=== PATIENT | male | born 1985 | race Caucasian/White ===

== ENCOUNTER 2020-07-16 11:36 | Emergency (ER) | payer BC ==
[~2020-07-16] VITALS: Ht 175.3 cm; Wt 80.4 kg
[2020-07-16] MEDS ORDERED: TETANUS/DIPHTHERIA TOX ADULT 0.5 ML SYR IM ONE (13:45)
[2020-07-16] MEDS ORDERED: HYDROCODONE/APAP 5MG-325MG TAB PO ONE (13:45)
[2020-07-16] MEDS ORDERED: TETANUS/DIPHTHERIA TOX ADULT 0.5 ML SYR ONE (14:46)
[2020-07-16] MEDS ORDERED: HYDROCODONE/APAP 5MG-325MG TAB ONE (14:46)
[2020-07-16] MEDS ORDERED: BACITRACIN ZINC 15 GM OINT TOP STA (16:38)
[2020-07-16] MEDS ORDERED: KETOROLAC TROMETHAMINE 60 MG/2 ML VIAL IM ONE (16:45)
[2020-07-16] MEDS ORDERED: LEVOFLOXACIN 500 MG TAB PO ONE (16:45)
[2020-07-16] MEDS ORDERED: CLINDAMYCIN PHOS 600 MG/ 4 ML VIAL IM ONE (16:45)
[2020-07-16] MEDS ORDERED: CYCLOBENZAPRINE HCL 10 MG TAB PO ONE (16:45)
[2020-07-16] MEDS ORDERED: MOTRIN800 MG PO (17:01)
[2020-07-16] MEDS ORDERED: ULTRAM50 MG PO (17:01)
[2020-07-16] MEDS ORDERED: CYCLOBENZAPRINE5 MG PO (17:01)
[2020-07-16] MEDS ORDERED: CLINDAMYCIN HC300 MG PO (17:01)
[2020-07-16] MEDS ORDERED: LEVOFLOXACIN750 MG PO (17:01)
[2020-07-16] MEDS ORDERED: KETOROLAC TROMETHAMINE 60 MG/2 ML VIAL ONE (17:28)
[2020-07-16] MEDS ORDERED: LEVOFLOXACIN 500 MG TAB ONE (17:28)
[2020-07-16] MEDS ORDERED: CLINDAMYCIN PHOS 600 MG/ 4 ML VIAL ONE (17:28)
[2020-07-16] MEDS ORDERED: CYCLOBENZAPRINE HCL 10 MG TAB ONE (17:28)
[2020-07-16 17:51] VITALS: BP 97/66
== END 2020-07-16 17:43 | disposition home or self-care (01) ==
LOC: FSED 13:45
DX: S06.0X0A Concussion without loss of consciousness, initial encounter (principal); S52.022A Displaced fracture of olecranon process without intraarticular extension of left ulna, initial encounter for closed fracture; S61.411A Laceration without foreign body of right hand, initial encounter; S00.81XA Abrasion of other part of head, initial encounter; S80.211A Abrasion, right knee, initial encounter; W11.XXXA Fall on and from ladder, initial encounter; Y92.89 Other specified places as the place of occurrence of the external cause
CPT/HCPCS: 70450; 70486; 71250; 72125; 73080; 73110; 73130; 73562; 74176; 90471; 90714; 96372; 99284; J1885